=== PATIENT | male | born 1990 | race Caucasian/White ===

== ENCOUNTER 2023-11-02 21:53 | Emergency (ER) | payer BC, SELFPAY ==
[2023-11-02 21:55] VITALS: BP 141/90
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
[2023-11-02] MEDS: ADACEL 0.5 ML IM (22:56)
== END 2023-11-02 23:03 | disposition home or self-care (01) ==
LOC: EMR 21:53
PROVIDERS: EMERGENCY PHYSICIAN Student in an Organized Health Care Education/Training Program
DX: S61.012A Laceration without foreign body of left thumb without damage to nail, initial encounter (principal); W26.0XXA Contact with knife, initial encounter; Z23 Encounter for immunization
CPT/HCPCS: 99282; 90471; 90715